=== PATIENT | female | born 1945 | race Caucasian/White ===

== ENCOUNTER 2017-06-30 15:14 | Outpatient (CLI) | payer MEDICARE, BC ==
[2017-06-30 20:07] LABS: Hematocrit 40.9 % (36.0-47.0); Mean Platelet Volume 7.2 fL (7.4-10.4); Red Blood Cell (RBC) Count 4.16 mill/uL (4.20-5.40); White Blood Cell (WBC) Count 7.4 thou/uL (4.8-10.8)
[2017-06-30 20:10] LABS: Anion Gap 16 mmol/L (10-20); BUN (Urea Nitrogen) 19 mg/dL (9.8-20.1); Calc. Creatinine Clearance 0 mL/min (70-130); Calcium 10.1 mg/dL (7.8-10.44); Carbon Dioxide 23 mmol/L (23-31); Chloride 103 mmol/L (98-107); Estimated GFR-MDRD 57
== END 2017-06-30 15:15 | disposition home or self-care (01) ==
LOC: LABBT 15:14
PROVIDERS: ATTEND Neurological Surgery
DX: Z01.818 Encounter for other preprocedural examination (principal); G56.21 Lesion of ulnar nerve, right upper limb
CPT/HCPCS: 80048; 85027

== ENCOUNTER 2017-07-07 05:51 | Day surgery (SDC) | payer MEDICARE, BC ==
[2017-06-30 15:30] VITALS: BMI 27.3
--- NOTE | 2017-07-06 22:29 | HP ---
HISTORY OF PRESENT ILLNESS: Ms. Llamas is known to us for previous ACDF and carpal tunnel release. She returns now roughly 4 weeks postop from a carpal tunnel release with worsening numbness in the 4 th and 5th digits of her hand and positive Tinel's to the cubital tunnel in the right upper extremit y. After a long discussion, I decided to discuss the possibility of ulnar nerve decompression with the right upper extremity. PAST MEDICAL HISTORY: Osteoarthritis, back pain, carpal tunnel, coronary artery disease, Rayn aud's, Morphea scleroderma. ALLERGIES: To PLAQUENIL. PHYSICAL EXAMINATION: Patient is alert and oriented x3. Positive Tinel's to the cubital tunnel of the right upper extremity, sensory disturbance in the fourth and fifth digits of the right hand. ASSESSMENT: Ulnar neuropathy. PLAN: Dr. Zurita met with the patient and discussed the right upper extremity ulnar nerve release. He explained to the patient the risks, benefits, and alternatives to the procedure. The patient exp ressed understanding and would like to move forward with surgery as discussed. I believe that the p atient is mentally competent and capable of making medical decisions for herself and we will move fo rward with surgery as planned. Martir Moreno PA-C, dictating for Dr. Zurita.
[2017-07-07] MEDS ORDERED: Bupivacaine HCl 0.5%/Epinephrine 1:200,000/PF 30 ml Vial ONE (06:46)
[2017-07-07] MEDS ORDERED: Ketorolac Tromethamine 30 MG/ML VIAL ONE (07:21)
[2017-07-07] MEDS ORDERED: Propofol 200 MG/20 ML VIAL ONE (07:21)
[2017-07-07] MEDS ORDERED: Dexamethasone 20 MG/5 ML VIAL ONE (07:21)
[2017-07-07] MEDS ORDERED: ePHEDrine/0.9% NaCl/PF SYRINGE 50 mg/10 ml ONE (07:21)
[2017-07-07] MEDS ORDERED: Ondansetron HCl/PF 4 MG/2 ML Vial ONE (07:21)
[2017-07-07] MEDS ORDERED: Lidocaine 2% PF 10 ML AMP (For Epidural Use) ONE (07:21)
--- NOTE | 2017-07-07 08:15 | OP ---
DATE OF SERVICE: 07/07/2017 SURGEON: Douglas Zurita M.D. [facility] PSYCHIATRIST: Martir Moreno PA-C. INDICATION: Prevent neurologic decline. DIAGNOSIS: Right ulnar neuropathy. PROCEDURE PERFORMED: Right ulnar nerve decompression. ANESTHESIA: General. TECHNIQUE: The patient was brought into the operating room and placed under general anesthesia. He r arm was prepped up to the level of the axilla. A small linear incision was planned across the elb ow in line with the ulnar nerve. This area was infiltrated with lidocaine with epinephrine. After an appropriate operative pause, the incision was created. The underlying ulnar nerve was identified . An adhesiolysis was performed across the nerve and extended in both proximal and distal direction s until the nerve was well-decompressed. The wound was then irrigated. Hemostasis was maintained t hroughout. The wound was then closed in anatomic layers and a pressure dressing was applied. There were no known procedural complications.
== END 2017-07-07 09:20 | disposition home or self-care (01) ==
LOC: SDC 05:51
PROVIDERS: ATTEND Neurological Surgery
PROC: 01N40ZZ Release Ulnar Nerve, Open Approach (ICD-10-PCS; principal; 2017-07-07)
DX: G56.21 Lesion of ulnar nerve, right upper limb (principal); I25.10 Atherosclerotic heart disease of native coronary artery without angina pectoris; L94.0 Localized scleroderma [morphea]; M19.90 Unspecified osteoarthritis, unspecified site; Z88.8 Allergy status to other drugs, medicaments and biological substances; Z79.899 Other long term (current) drug therapy; Z98.1 Arthrodesis status; Z98.51 Tubal ligation status; Z95.5 Presence of coronary angioplasty implant and graft; Z90.710 Acquired absence of both cervix and uterus; Z90.49 Acquired absence of other specified parts of digestive tract; Z90.89 Acquired absence of other organs; Z98.890 Other specified postprocedural states
CPT/HCPCS: J0670; J1100; J1170; J1885; J2001; J2405; J2704

== ENCOUNTER 2019-01-11 13:58 | Outpatient (CLI) | payer MEDICARE, BC ==
--- NOTE | 2019-01-11 15:02 | BD ---
DEXA BONE DENSITY STUDY: HISTORY: Postmenopausal. FINDINGS: Lumbar Spine: BMD (g/cm2) L1 0.741 T-Score: -2.3 L2 0.842 T-Score: -1.7 L3 0.951 T-Score: -1.2 L4 0.992 T-Score: -0.6 L1-L4 0.883 T-Score: -1.5 Femoral Neck: 0.571 T-Score: -2.5 Total Femur: 0.794 T-Score: -1.2 Impression: Osteoporosis of the left femoral neck. Osteopenia of the lumbar spine. POS: [facility]
== END 2019-01-11 13:59 | disposition home or self-care (01) ==
LOC: BICMAMMO 13:58
PROVIDERS: ATTEND Internal Medicine Rheumatology
DX: M81.0 Age-related osteoporosis without current pathological fracture (principal); M85.88 Other specified disorders of bone density and structure, other site
CPT/HCPCS: 77080

== ENCOUNTER 2021-04-12 11:21 | Outpatient (CLI) | payer MEDICARE, BC | END 2021-04-12 11:22 | disposition home or self-care (01) | LOC: BICRAD 11:21 | PROVIDERS: ATTEND Internal Medicine Rheumatology | DX: M81.0 Age-related osteoporosis without current pathological fracture (principal); M41.9 Scoliosis, unspecified | CPT/HCPCS: 72072 ==

== ENCOUNTER 2021-05-13 07:12 | Inpatient (IN) | payer MEDICARE, BC ==
[2021-05-13] MEDS ORDERED: Acetaminophen 650 MG Suppository PR PRN (08:35)
[2021-05-13] MEDS ORDERED: Acetaminophen 325 MG TAB PO PRN (08:35)
[2021-05-13 09:00] LABS: #Basophils 0.1 thou/uL (0.0-0.2); #Eosinphils 0.1 thou/uL (0.0-0.7); #Lymphocytes 2.3 thou/uL (1.20-3.40); #Monocytes 0.8 thou/uL (0.11-0.59); #Neutrophils 4.7 thou/uL (1.40-6.50); %Basophils 0.6 % (0.0-1.0); %Lymphocytes 29.2 % (21.0-51.0); %Monocytes 10.1 % (0.0-10.0); Hemoglobin 12.5 g/dL (12.0-16.0); Mean Corpuscular HGB CONC 33.9 g/dL (32.0-36.0); Mean Platelet Volume 6.5 fL (7.4-10.4); Platelet Count 264 thou/uL (130-400); RBC Distribution Width 11.7 % (11.5-14.5); Red Blood Cell (RBC) Count 3.69 mill/uL (4.20-5.40)
[2021-05-13 09:15] LABS: Anion Gap 11 mmol/L (10-20); BUN (Urea Nitrogen) 10 mg/dL (9.8-20.1); Calc. Creatinine Clearance 0 mL/min (70-130); Calcium 9.3 mg/dL (7.8-10.44); Carbon Dioxide 26 mmol/L (23-31); Chloride 106 mmol/L (98-107); Glucose 98 mg/dL (83-110); Magnesium 1.6 mg/dL (1.6-2.6); Potassium 3.9 mmol/L (3.5-5.1); Sodium 139 mmol/L (136-145)
[2021-05-13 09:39] LABS: CKMB 6.3 ng/mL (0-6.6)
[2021-05-13 10:49] VITALS: BMI 23.3
[2021-05-13] MEDS ORDERED: Acetaminophen ER (8hr) 650 MG TAB PO PRN (12:38)
[2021-05-13] MEDS ORDERED: Colchicine 0.6 MG TAB PO SCH ×2 (13:30→21:00)
[2021-05-13] MEDS: traMADol HCl 50 MG TAB PO PRN ×2 (13:46→23:01)
[2021-05-13] MEDS ORDERED: Magnesium Sulfate 4 GM in Sodium Chloride 0.9% 250 ML 250 ML IVPB SCH (18:00)
[2021-05-13] MEDS: Montelukast Sodium 10 mg Tablet PO SCH (20:11)
[2021-05-13] MEDS: Rosuvastatin 20 MG TAB PO SCH (20:11)
[2021-05-13] MEDS: Colchicine 0.6 MG TAB PO SCH (20:14)
[2021-05-14 05:23] LABS: Cardiac Risk 1.7 (Less than 4.5)
[2021-05-14] MEDS: traMADol HCl 50 MG TAB PO PRN ×5 (07:37→23:58)
[2021-05-14] MEDS: Aspirin Chewable 81 MG TAB PO SCH (08:16)
[2021-05-14] MEDS: Spironolactone 25 MG TAB PO SCH (08:16)
[2021-05-14] MEDS: Aspirin 325 mg Enteric Coated Tablet PO SCH (08:16)
[2021-05-14] MEDS: Colchicine 0.6 MG TAB PO SCH ×2 (09:38→20:23)
[2021-05-14] MEDS: FLUoxetine HCl 10 MG CAP PO SCH (09:39)
[2021-05-14 11:02] LABS: Troponin I 0.013 ng/mL (< 0.028)
[2021-05-14] MEDS: Montelukast Sodium 10 mg Tablet PO SCH (20:21)
[2021-05-14] MEDS: Rosuvastatin 20 MG TAB PO SCH (20:22)
[2021-05-15] MEDS: traMADol HCl 50 MG TAB PO PRN ×4 (04:03→16:36)
[2021-05-15] MEDS: Colchicine 0.6 MG TAB PO SCH (07:52)
[2021-05-15] MEDS: Spironolactone 25 MG TAB PO SCH (07:54)
[2021-05-15] MEDS: Aspirin 325 mg Enteric Coated Tablet PO SCH (07:54)
[2021-05-15] MEDS: Aspirin Chewable 81 MG TAB PO SCH (07:54)
[2021-05-15] MEDS: FLUoxetine HCl 10 MG CAP PO SCH (07:59)
[2021-05-15] MEDS ORDERED: ADENOSINE 60 MG/20 ML VIAL ONE (09:05)
[2021-05-15] MEDS ORDERED: methylPREDNISolone Sod Succ 40 MG VIAL IVP SCH (10:00)
[2021-05-15 15:51] VITALS: BP 130/72; TEMP 98.2
== END 2021-05-15 17:10 | disposition home or self-care (01) | DRG 552 ==
LOC: 2SW 07:12 → OBSVTOIN 05-14 14:23
PROVIDERS: ADMIT Internal Medicine; ATTEND Internal Medicine
DX: M48.02 Spinal stenosis, cervical region (principal); M54.12 Radiculopathy, cervical region; I25.10 Atherosclerotic heart disease of native coronary artery without angina pectoris; E78.5 Hyperlipidemia, unspecified; M19.90 Unspecified osteoarthritis, unspecified site; I16.0 Hypertensive urgency; M81.0 Age-related osteoporosis without current pathological fracture; E87.6 Hypokalemia; N18.2 Chronic kidney disease, stage 2 (mild); I12.9 Hypertensive chronic kidney disease with stage 1 through stage 4 chronic kidney disease, or unspecified chronic kidney disease; E83.42 Hypomagnesemia; K21.9 Gastro-esophageal reflux disease without esophagitis; Z90.49 Acquired absence of other specified parts of digestive tract; Z98.51 Tubal ligation status; Z90.710 Acquired absence of both cervix and uterus; Z79.82 Long term (current) use of aspirin; Z95.5 Presence of coronary angioplasty implant and graft; Z79.899 Other long term (current) drug therapy
CPT/HCPCS: 36415; 71046; 72141; 78452; 80061; 82553; 83735; 84484; 85025; 93017; 94760; 96374; A9500; G0378; J2920; J3475; J7050

== ENCOUNTER 2022-08-20 10:20 | Outpatient (CLI) | payer MEDICARE, BC | END 2022-08-20 10:21 | disposition home or self-care (01) | LOC: TBSIIMAG 10:20 | PROVIDERS: ATTEND Neurological Surgery | DX: M47.22 Other spondylosis with radiculopathy, cervical region (principal); Z98.890 Other specified postprocedural states | CPT/HCPCS: 72141 ==

== ENCOUNTER 2022-09-03 12:42 | Outpatient (CLI) | payer MEDICARE, BC ==
[2022-09-03 13:25] LABS: Hemoglobin 12.9 g/dL (12.0-15.5); Mean Corpuscular HGB CONC 33.7 g/dL (32.0-36.0); Mean Corpuscular Hemoglobin 32.7 pg (27.0-33.0); Mean Platelet Volume 8.6 fl (7.4-10.4); Platelet Count 269 10x3/uL (150-450); RBC Distribution Width 12.5 % (11.5-14.5); Red Blood Cell (RBC) Count 3.95 10x6/uL (3.90-5.03); White Blood Cell (WBC) Count 5.6 10x3/uL (3.5-10.5)
[2022-09-03 13:42] LABS: Anion Gap 12 mmol/L (10-20); BUN (Urea Nitrogen) 15 mg/dL (9.8-20.1); Calc. Creatinine Clearance 0 mL/min (70-130); Calcium 9.8 mg/dL (7.8-10.44); Carbon Dioxide 28 mmol/L (23-31); Chloride 106 mmol/L (98-107); Estimated GFR 72; Glucose 130 mg/dL (83-110); Potassium 4.1 mmol/L (3.5-5.1); Sodium 142 mmol/L (136-145)
== END 2022-09-03 12:43 | disposition home or self-care (01) ==
LOC: LABBT 12:42
PROVIDERS: ATTEND Neurological Surgery
DX: Z01.818 Encounter for other preprocedural examination (principal); M54.12 Radiculopathy, cervical region
CPT/HCPCS: 80048; 85027; 93005; 93010

== ENCOUNTER 2023-02-19 13:50 | Outpatient (CLI) | payer MEDICARE, BC | END 2023-02-19 13:51 | disposition home or self-care (01) | LOC: BICMAMMO 13:50 | PROVIDERS: ATTEND Internal Medicine Rheumatology | DX: M81.0 Age-related osteoporosis without current pathological fracture (principal) | CPT/HCPCS: 77080 ==

== ENCOUNTER 2025-05-26 12:52 | Outpatient (CLI) | payer MEDICARE | END 2025-05-26 12:53 | disposition home or self-care (01) | LOC: BICMAMMO 12:52 | PROVIDERS: ATTEND Internal Medicine Endocrinology, Diabetes & Metabolism | DX: M81.8 Other osteoporosis without current pathological fracture (principal); M85.851 Other specified disorders of bone density and structure, right thigh | CPT/HCPCS: 77080 ==